=== PATIENT | male | born 1990 | race Caucasian/White ===

== ENCOUNTER 2018-03-28 20:11 | Emergency (ER) | payer BC, OTHER ==
[2018-03-28 20:29] VITALS: RESP 20
[2018-03-28 23:33] VITALS: BP 118/63; PULSE 62; TEMP 97; O2SAT 100
== END 2018-03-28 23:02 | disposition short-term general hospital (02) ==
LOC: ED 20:11
DX: T18.5XXA Foreign body in anus and rectum, initial encounter (principal)
CPT/HCPCS: 72170; 99282; 99283